=== PATIENT | male | born 1970 | race Caucasian/White ===

== ENCOUNTER 2023-05-24 11:28 | Inpatient (IN) | payer MEDICAID ==
[~2023-05-24] VITALS: Ht 172.7 cm; Wt 68.5 kg
[2023-05-24 12:47] LABS: BASOPHILS % 0.4 % (0.0-2.0); DIFFERENTIAL COMMENT 0; EOSINOPHILS % 1.7 % (0.0-5.0); HEMATOCRIT. 47.4 % (42.0-52.0); HEMOGLOBIN. 16.9 g/dL (14.0-18.0); LYMPHOCYTES % 19.7 % (20.0-50.0); MEAN CORPUSCULAR HEMOGLOBIN 32.8 pg (28.0-32.0); MEAN CORPUSCULAR HGB CONC 35.7 g/dL (31.0-37.0); MEAN CORPUSCULAR VOLUME 91.9 fL (80.0-94.0); MEAN PLATELET VOLUME 7.6 fl (7.4-10.4); MONOCYTES % 6.9 % (2.0-8.0); NEUTROPHILS % 71.3 % (40.0-76.0); PLATELET 241 x1000/uL (130-400); RED BLOOD CELL COUNT 5.16 mill/uL (4.7-6.1); RED CELL DISTRIBUTION WIDTH 13.1 % (11.6-14.6); WHITE BLOOD COUNT 9.3 x1000/uL (4.5-11.0)
[2023-05-24 12:56] LABS: INR 0.9; PROTHROMBIN TIME 10.5 sec (9.6-11.0)
[2023-05-24] MEDS: SODIUM CHLORIDE 0.9% 1000ML BAG (SEPSIS BOLUS) IV ONE (13:02)
[2023-05-24 13:20] LABS: ALANINE AMINOTRANSFERASE 23 IU/L (10-49); ALBUMIN 4.3 g/dL (3.2-4.8); ASPARTATE AMINOTRANSFERASE 19 IU/L (<34); BILIRUBIN TOTAL 0.8 mg/dL (0.1-1.0); CALCIUM 8.7 mg/dL (8.7-10.4); CARBON DIOXIDE 27 mEq/L (21-32); CHLORIDE 100 mEq/L (98-107); ETHANOL BLOOD < 10 mg/dL (<10); GLUCOSE 383 mg/dL (70-105); POTASSIUM 3.8 mEq/L (3.5-5.1); PROTEIN TOTAL 7.8 g/dL (6.0-8.3); SODIUM 134 mEq/L (136-145); TROPONIN I HIGH SENSITIVITY < 4 ng/L (3.0-53); UREA NITROGEN BLOOD 13 mg/dL (9-23)
[2023-05-24 14:33] LABS: BETA HYDROXYBUTYRATE 0.2 mMol/L (0.0-0.3)
[2023-05-24] MEDS ORDERED: ASPIRIN 81MG EC TABLET PO ONE (15:15)
[2023-05-24] MEDS ORDERED: ATORVASTATIN CALCIUM 40MG TABLET PO SCH (15:30)
[2023-05-24] MEDS: ASPIRIN 325MG TABLET PO ONE (15:34)
[2023-05-24] MEDS: INSULIN LISPRO 100 UNITS/ML SUBCUT SCH (15:35)
[2023-05-24] MEDS ORDERED: DOCUSATE SODIUM 100MG CAPSULE PO PRN (17:00)
[2023-05-24] MEDS ORDERED: GUAIFENESIN 200MG/10ML SUGAR FREE UDC PO PRN (17:00)
[2023-05-24] MEDS ORDERED: ONDANSETRON HCL 4MG/2ML INJ IV PRN (17:00)
[2023-05-24] MEDS ORDERED: TRAMADOL 50MG TABLET PO PRN (17:00)
[2023-05-24] MEDS ORDERED: ACETAMINOPHEN 325MG TABLET PO PRN (17:00)
[2023-05-24] MEDS ORDERED: INSULIN LISPRO 100 UNITS/ML SUBCUT SCH (18:20)
[2023-05-25] MEDS: ATORVASTATIN CALCIUM 20MG TABLET PO SCH (00:35)
[2023-05-25 01:39] VITALS: BP 148/59; PULSE 88; RESP 18; TEMP 98.5
[2023-05-25 04:00] VITALS: BP 126/58; PULSE 88; RESP 18; TEMP 98
[2023-05-25 06:34] LABS: ALANINE AMINOTRANSFERASE 17 IU/L (10-49); ALBUMIN 3.5 g/dL (3.2-4.8); ASPARTATE AMINOTRANSFERASE 18 IU/L (<34); BASOPHILS % 0.4 % (0.0-2.0); BILIRUBIN TOTAL 0.6 mg/dL (0.1-1.0); CALCIUM 8.1 mg/dL (8.7-10.4); CARBON DIOXIDE 24 mEq/L (21-32); CHLORIDE 106 mEq/L (98-107); CREATININE 0.8 mg/dL (0.6-1.3); DIFFERENTIAL COMMENT 0; HEMATOCRIT. 43.5 % (42.0-52.0); HEMOGLOBIN. 15.6 g/dL (14.0-18.0); MEAN CORPUSCULAR HEMOGLOBIN 32.5 pg (28.0-32.0); MEAN CORPUSCULAR HGB CONC 35.8 g/dL (31.0-37.0); MEAN PLATELET VOLUME 7.6 fl (7.4-10.4); MONOCYTES % 7.8 % (2.0-8.0); NEUTROPHILS % 56.8 % (40.0-76.0); PLATELET 228 x1000/uL (130-400); POTASSIUM 3.2 mEq/L (3.5-5.1); PROTEIN TOTAL 5.9 g/dL (6.0-8.3); RED BLOOD CELL COUNT 4.78 mill/uL (4.7-6.1); RED CELL DISTRIBUTION WIDTH 13.1 % (11.6-14.6); SODIUM 137 mEq/L (136-145); UREA NITROGEN BLOOD 12 mg/dL (9-23); WHITE BLOOD COUNT 9.7 x1000/uL (4.5-11.0)
[2023-05-25 06:44] LABS: GLUCOSE 198 mg/dL (70-105)
[2023-05-25 08:00] VITALS: BP 136/91; PULSE 76; RESP 18; TEMP 97.9
[2023-05-25] MEDS: ASPIRIN 81MG EC TABLET PO SCH (08:54)
[2023-05-25] MEDS ORDERED: DEXTROSE 50% WATER 50ML SYRINGE IV PRN (11:45)
[2023-05-25 12:00] VITALS: BP 136/95; PULSE 67; RESP 18; TEMP 97.9
[2023-05-25] MEDS: BLOOD SUGAR DIAGNOSTIC STRIP TEST SCH (12:10)
[2023-05-25] MEDS: INSULIN LISPRO 100 UNITS/ML SUBCUT SCH (12:40)
[2023-05-25 15:15] LABS: CLARITY URINE CLEAR (CLEAR); COLOR URINE YELLOW (YELLOW); GLUCOSE URINE 3+ (NEGATIVE); KETONES URINE TRACE (NEGATIVE); LEUKOCYTE ESTERASE URINE 1+ (NEGATIVE); NITRITE URINE NEGATIVE (NEGATIVE); OCCULT BLOOD URINE NEGATIVE (NEGATIVE); PROTEIN URINE NEGATIVE (NEGATIVE); SPECIFIC GRAVITY URINE 1.026 (1.005-1.030)
[2023-05-25 15:33] LABS: *AMPHETAMINES SCREEN URINE PRESUMPTIVE POSITIVE (NEGATIVE); *BARBITURATES SCREEN URINE NEGATIVE (NEGATIVE); *BENZODIAZEPINES SCREEN URINE NEGATIVE (NEGATIVE); *COCAINE SCREEN URINE NEGATIVE (NEGATIVE); CANNABINOID URINE SCREEN NEGATIVE (NEGATIVE); ECSTASY MDMA SCREEN URINE NEGATIVE (NEGATIVE); METHADONE URINE SCREEN Neg (NEGATIVE); OPIATES URINE SCREEN NEGATIVE (NEGATIVE); PHENCYCLIDINE URINE SCREEN NEGATIVE (NEGATIVE)
[2023-05-25 15:46] LABS: BACTERIA URINE 1+; RBC URINE 0-2 /hpf (0-2); SQUAMOUS EPITHELIAL CELL URINE FEW /lpf (RARE/1+)
[2023-05-25 16:00] VITALS: BP 126/86; PULSE 81; RESP 18; TEMP 98.8
[2023-05-25] MEDS: METFORMIN HCL 500MG TABLET PO SCH (17:22)
[2023-05-25] MEDS: INSULIN LISPRO 100 UNITS/ML SUBCUT NR (18:00)
[2023-05-25 20:00] VITALS: BP 114/72; PULSE 82; RESP 20; TEMP 98.6
[2023-05-25] MEDS: ATORVASTATIN CALCIUM 40MG TABLET PO SCH (22:27)
[2023-05-25] MEDS: INSULIN GLARGINE 100 UNITS/ML SUBCUT SCH (22:40)
[2023-05-26] VITALS: BP 118/58; PULSE 85; RESP 18; TEMP 98.2
[2023-05-26 04:00] VITALS: BP 129/61; PULSE 82; RESP 18; TEMP 98
[2023-05-26 08:00] VITALS: BP 137/91; PULSE 69; RESP 18; TEMP 97.9
[2023-05-26] MEDS: CLOPIDOGREL 75MG TABLET PO SCH (10:30)
[2023-05-26] MEDS: AMLODIPINE 10MG TABLET PO SCH (10:30)
[2023-05-26 11:43] VITALS: BP 135/96; PULSE 64; TEMP 97.8; O2SAT 98
[2023-05-26 12:00] VITALS: BP 135/96; PULSE 64; RESP 18; TEMP 97.8
== END 2023-05-26 18:33 | disposition home or self-care (01) | DRG 45 ==
LOC: ER 11:28 → 8WST 15:16 → EDBEDREQTM 15:24 → EDBEDREQSVC 15:24 → EDBEDREQ 15:24
PROVIDERS: ADMIT Hospitalist; ATTEND Hospitalist
DX: I63.29 Cerebral infarction due to unspecified occlusion or stenosis of other precerebral arteries (principal); E11.65 Type 2 diabetes mellitus with hyperglycemia; I10 Essential (primary) hypertension; F15.10 Other stimulant abuse, uncomplicated; E78.5 Hyperlipidemia, unspecified; I69.322 Dysarthria following cerebral infarction; R29.703 NIHSS score 3
CPT/HCPCS: 36415; 70551; 71045; 80053; 80061; 80305; 80320; 81003; 82010; 82962; 83036; 83605; 84484; 85025; 86850; 86900; 92523; 92610; 93005; 93880; 93970; 97162; 99291; J1815; J7030; G0480